=== PATIENT | female | born 1930 | race African-American/Black ===

== ENCOUNTER → 2016-04-07 | Day surgery (SDC) | payer MEDICARE, OTHER ==
[~2016-04-07] MED LIST: ACTOS PO; ALPRAZOLAM PO; AMARYL PO; AMITRYPTYLINE PO; AMLODIPINE BESY10 MG PO; ARIMIDEX1 MG PO; ASPIRIN PO; ATENOLOL PO; AZOR 10-40 MG1 UDTAB PO; BENICAR HCT 40-1 TA1 PO; BYSTOLIC; DOCUSATE SODIU100 MG PO; FLEXERIL PO; FML LIQUIFILM; HCTZ PO; KCL PO; LANOXIN PO; LOSARTAN-HCTZ1 EAC1 PO; LOTREL 10/20 MG1 CAP PO; METFORMIN HCL500 M1 PO; MICARDIS PO; MICRO-K PO; NEURONTIN PO; OMEPRAZOLE40 M1 PO; POLYGESIC 5/5001 CAP PO; PRAVASTATIN SOD40 MG PO; RALOXIFENE HCL60 MG PO; TOPROL XL50 MG PO; TYLENOL ARTHRITIS; ZOCOR PO; ZOLOFT50 MG PO
--- NOTE | ~2016-04-07 | OR ---
Unit #: [id number] #: [id number] Patient: FRED GOTTI [id number] [facility] [address] [facility]. [place], [place] [address] [id number] O MR#: [id number] NAME: FRED GOTTI ROOM: Date of Procedure: 04/07/2016 Admission Date: 04/07/2016 Surgeon: Oz Ospina M.D. : 1930 Attending Physician: Oz Ospina M.D. Referring Physician: Oz Ospina M.D. Primary Care Physician: Ani Champagne M.D. OPERATIVE REPORT PREOPERATIVE DIAGNOSES 1. Painful keloid, right chest wall. 2. Progressive dysphagia. POSTOPERATIVE DIAGNOSES 1. Painful keloid. 2. Schatzki ring and gastritis. PROCEDURES PERFORMED 1. Excision of painful keloid with primary closure and injection of steroids. 2. Esophagogastroduodenoscopy with biopsy for KYAW testing and balloon dilatation of Schatzki ring to 20 mm. ANESTHESIA Monitored anesthesia. ESTIMATED BLOOD LOSS Less than 10 mL. INDICATIONS FOR PROCEDURE Ms. Gotti is an 85-year-old female, who had a previous mastectomy and where her drains for the mastectomy, she has developed a painful keloid scar. It causes her significant discomfort to the point where she has trouble wearing her clothes. She also has a history of reflux and is complaining of dysphagia for solids. DESCRIPTION OF PROCEDURE The patient was admitted to [facility], positively identified, transported to the operating room, and after appropriate monitoring and positioning, she was sedated by the nurse director web. The area around the keloid was prepped and draped in usual sterile fashion. Local anesthetic was infiltrated in the skin and soft tissue and a wedge excision was performed and we completely excised the lesion. We obtained hemostasis, infiltrated Kenalog into the dermis and then closed the skin with 4-0 Monocryl subcuticular interrupted sutures and Dermabond skin adhesive. After that portion of procedure was completed, the patient was repositioned. A bite block was placed. The endoscope was passed through the oral cavity into the esophagus. Under direct vision, we passed through the esophagus and at the distal esophagus, she had a Schatzki ring. We were able to pass into the stomach and she had gastritis. A CLOtest was taken. I passed through the pylorus down to the second and Unit #: [id number] #: [id number] Patient: FRED GOTTI third portion of the duodenum and the duodenum and duodenal bulb were normal. As we came back into the stomach, we retroflexed no other findings were found in the upper fundus or cardia. As I came back to the GE junction, I passed a balloon dilator and dilated the Schatzki ring up sequentially to 18, 19, and 20 mm. There was good dilatation. No bleeding or perforation was noted. The rest of the esophageal mucosa was normal. The larynx was not well seen. The patient tolerated the procedure well and transported to recovery in stable condition. Findings and postoperative instructions were discussed with her son. Dictated by... Mily Escalante/sheri TD: 04/08/2016 01:43 JOB #: [id number] OPERATIVE REPORT X Oz Ospina MD X PROCEDURE OPERATIVE NOTE
== END | disposition home or self-care (01) ==
LOC: CSUR 09:25
DX: L91.0 Hypertrophic scar (principal); K22.2 Esophageal obstruction; K29.70 Gastritis, unspecified, without bleeding; L08.9 Local infection of the skin and subcutaneous tissue, unspecified; K21.9 Gastro-esophageal reflux disease without esophagitis; Z90.11 Acquired absence of right breast and nipple; E11.43 Type 2 diabetes mellitus with diabetic autonomic (poly)neuropathy; Z79.84 Long term (current) use of oral hypoglycemic drugs; I10 Essential (primary) hypertension; E11.21 Type 2 diabetes mellitus with diabetic nephropathy; E78.00 Pure hypercholesterolemia, unspecified
CPT/HCPCS: 82947; 87077; 88305; J3301